=== PATIENT | male | born 1985 | race Caucasian/White ===

== ENCOUNTER 2019-01-26 08:19 | Emergency (ER) | payer OTHER ==
[~2019-01-26] VITALS: Ht 182.9 cm; Wt 80.0 kg
[2019-01-26 08:22] VITALS: BP 138/85; PULSE 99; RESP 18; Ht 182.9 cm; Wt 80.0 kg
[2019-01-26] MEDS ORDERED: KETOROLAC 60 MG INJ IM STA (08:49)
[2019-01-26] MEDS ORDERED: DEXAMETHASONE 10 MG/ML 1 ML INJ IM ONE (09:00)
[2019-01-26] MEDS: DIAZEPAM 5 MG TAB PO ONE ×2 (09:11→09:16)
[2019-01-26] MEDS ORDERED: HYDR-4011 PO (09:41)
[2019-01-26] MEDS ORDERED: NAPR-985 PO (09:41)
[2019-01-26] MEDS ORDERED: CYCL10TA7 PO (09:41)
[2019-01-26] MEDS ORDERED: MED4DP PO (09:41)
--- NOTE | 2019-01-26 10:22 | ERD ---
ER Documentation Chief Complaint Chief Complaint back pain HPI 33-year-old male presenting with back pain. Patient was squatting at the gym earlier today and felt back pain. He denies any numbness or tingling down his legs. He states he has similar episode happened 10 months ago that resolved on its own. He took 3 Advil today. Denies any changes in urination or bowel movement. Denies chest pain or shortness of breath. No fevers. Denies medical problems. NKDA. Surgical history right arm. Social history denies ROS All systems reviewed and are negative except as per history of present illness. Medications Home Meds Active Scripts Methylprednisolone* (Medrol* DOSE PACK) 4 Mg/Dose-Pack Tab.ds.pk, 4 MG PO . DIRECTED, #1 PACKET Prov:SWATI VIZCAINO PA-C 01/26/19 Cyclobenzaprine Hcl* (Cyclobenzaprine Hcl*) 10 Mg Tablet, 10 MG PO TID, #15 TAB Prov:SWATI VIZCAINO PA-C 01/26/19 Naproxen* (Naprosyn*) 500 Mg Tablet, 500 MG PO BID PRN for PAIN AND/OR INFLAMMATION, #30 TAB Prov:SWATI VIZCAINO PA-C 01/26/19 Hydrocodone/Acetaminophen ([place] 5-325 Tablet) 1 Each Tablet, 1 TAB PO Q6H PRN for PAIN, #7 TAB Prov:SWATI VIZCAINO PA-C 01/26/19 Allergies Allergies: Coded Allergies: No Known Allergy (Unverified , 01/26/19) PMhx/Soc Medical and Surgical Hx: pt denies Medical Hx, pt denies Surgical Hx Hx Alcohol Use: Yes (social) Hx Substance Use: No Hx Tobacco Use: Yes (chew) Smoking Status: Current every day smoker FmHx Family History: No diabetes, No coronary disease, No other Physical Exam Vitals Vital Signs Date Temp Pulse Resp B/P (MAP) Pulse Ox O2 O2 Flow FiO2 Time Delivery Rate 01/26/19 98.1 99 18 138/85 99 08:22 (102) Physical Exam GENERAL: The patient is well-appearing, well-nourished, in no acute distress HEART: Regular rate and rhythm. No murmurs, clicks, rubs or gallops. No S3 or S4. ABDOMEN:Soft, nontender and nondistended. Good bowel sounds. No rebound or guarding. No gross peritonitis. No gross organomegaly or masses. No Casillas sign or McBurney point tenderness. BACK: No midline or flank tenderness. Mild tenderness palpation over paraspinous muscles of the lumbar spine. EXTREMITIES: Equal pulses bilaterally. There is no peripheral clubbing, cyanosis or edema. No focal swelling or erythema. Full range of motion. NEUROLOGIC: Alert and oriented. Cranial nerves II through XII intact. Motor strength in all 4 extremities with 5 out of 5 strength. Sensation grossly intact. Normal speech and gait. SKIN: There is no apparent rash or petechiae. The skin is warm and dry. Results 24 hrs Current Medications Medications Dose Sig/Tracy Start Time Status Last (Trade) Ordered Route PRN Stop Time Admin Dose Reason Admin Ketorolac 60 mg ONCE STAT 01/26/19 DC 01/26/19 Tromethamine IM 08:49 01/26/19 09:10 (Toradol) 08:51 10 mg ONCE ONCE 01/26/19 DC 01/26/19 Dexamethasone IM 09:00 01/26/19 09:09 (Decadron) 09:01 Diazepam 5 mg ONCE ONCE 01/26/19 DC (Valium) PO 09:00 01/26/19 09:01 Procedures/MDM DIAGNOSTIC IMAGING REPORT Patient: ANNEMARIE BREWER : 1985 Age: 33 Sex: M MR #: [id number] DOS: 01/26/19 0849 Ordering MD: MORRIS VIZCAINO PA-C Location: [facility] Room/Bed: PROCEDURE: Lumbar spine series CLINICAL INDICATION: Pain TECHNIQUE: AP and lateral views lumbar spine were obtained COMPARISON: None FINDINGS: Exaggerated lumbar lordosis. No evidence of subluxations. No acute fractures. Bony mineralization is normal. No focal bony blastic or lytic lesions. Posterior elements are intact. IMPRESSION: No evidence acute fractures or subluxations. MDM: 33-year-old male presenting with back pain. I have low suspicion for discitis, epidural abscess or fracture. I will suspicion for cauda equina. Patient likely has muscular skeletal strain secondary to squatting at the gym. He will be discharged with supportive medications. Patient is told if symptoms change or worsen to return immediately to the ER. All questions answered at discharge Departure Diagnosis: Primary Impression: Back pain Condition: Stable Patient Instructions: Back Pain (Acute Or Chronic) Referrals: [facility] YOU HAVE RECEIVED A MEDICAL SCREENING EXAM AND THE RESULTS INDICATE THAT YOU DO NOT HAVE A CONDITION THAT REQUIRES URGENT TREATMENT IN THE EMERGENCY DEPARTMENT. FURTHER EVALUATION AND TREATMENT OF YOUR CONDITION CAN WAIT UNTIL YOU ARE SEEN IN YOUR DOCTORS OFFICE WITHIN THE NEXT 1-2 DAYS. IT IS YOUR RESPONSIBILITY TO MAKE AN APPOINTMENT FOR FOLOW-UP CARE. IF YOU HAVE A PRIMARY DOCTOR --you should call your primary doctor and schedule an appointment IF YOU DO NOT HAVE A PRIMARY DOCTOR YOU CAN CALL OUR PHYSICIAN REFERRAL HOTLINE AT IF YOU CAN NOT AFFORD TO SEE A PHYSICIAN YOU CAN CHOSE FROM THE FOLLOWING [facility] [address] [facility] [address] [facility] [facility] [address] [facility] [address] [address]. [facility] [address] [facility]. [facility]. [address] Additional Instructions: FOLLOW UP WITH YOUR PRIMARY CARE PHYSICIAN TOMORROW.Return to this facility if you are not improving as expected. SWATI VIZCAINO PA-C Jan 26, 2019 10:22
== END 2019-01-26 10:17 | disposition home or self-care (01) ==
LOC: FTE 08:19
DX: M54.5 Low back pain (principal)
CPT/HCPCS: 72100; 96372; 99284; J1100; J1885